=== PATIENT | female | born 1975 | race Caucasian/White ===

== ENCOUNTER 2016-07-19 03:41 | Inpatient (IN) | payer OTHER ==
[~2016-07-19] VITALS: Ht 167.6 cm; Wt 77.5 kg
[2016-07-19 03:58] VITALS: Ht 167.6 cm; Wt 77.5 kg
[2016-07-19] MEDS ORDERED: ONDANSETRON 4 MG INJ IV STA (04:10)
[2016-07-19] MEDS ORDERED: morphine 4 MG/ML VIAL IV STA (04:10)
[2016-07-19] MEDS ORDERED: SOD CHLORIDE 0.9% 1,000 ML IV STA (04:10)
[2016-07-19 04:24] LABS: URINE BLOOD (Dip) POC Trace-lysed (NEGATIVE)
[2016-07-19 04:51] LABS: ADD SCAN DIFF NO
[2016-07-19 04:53] LABS: BASOPHILS % 0.3 % (0.0-2.0); EOSINOPHILS # 0.1 10^3/ul (0.0-0.5); EOSINOPHILS % 0.4 % (0.0-7.0); HEMATOCRIT 37.1 % (37.0-47.0); HEMOGLOBIN 13.3 g/dl (12.0-16.0); LYMPHOCYTES # 1.5 10^3/ul (0.8-2.9); LYMPHOCYTES % 10.9 % (15.0-51.0); MEAN CORPUSCULAR HEMOGLOBIN 32.9 pg (29.0-33.0); MEAN CORPUSCULAR HGB CONC 35.8 g/dl (32.0-37.0); MEAN CORPUSCULAR VOLUME 91.8 fl (82.0-101.0); MEAN PLATELET VOLUME 10.7 fl (7.4-10.4); MONOCYTE # 0.7 10^3/ul (0.3-0.9); MONOCYTES % 5.4 % (0.0-11.0); NEUTROPHILS % 82.6 % (39.0-77.0); PLATELET COUNT 308 10^3/UL (140-415); RED BLOOD COUNT 4.04 10^6/ul (4.20-5.40); RED CELL DISTRIBUTION WIDTH 11.5 % (11.5-14.5); WHITE BLOOD COUNT 13.3 10^3/ul (4.8-10.8)
[2016-07-19 04:59] LABS: ADD UMIC YES; URINE BILIRUBIN (Dip) NEGATIVE (NEGATIVE); URINE BLOOD (Dip) TRACE (NEGATIVE); URINE COLOR LT. YELLOW (YELLOW); URINE GLUCOSE (Dip) NEGATIVE (NEGATIVE); URINE KETONES (Dip) NEGATIVE (NEGATIVE); URINE LEUKOCYTE ESTERASE (Dip) NEGATIVE (NEGATIVE); URINE NITRITE (Dip) NEGATIVE (NEGATIVE); URINE TOTAL PROTEIN (Dip) NEGATIVE (NEGATIVE); URINE UROBILINOGEN (Dip) 0.2 E.U./dL (0.1-1.0)
[2016-07-19 05:09] LABS: BACTERIA,URINE OCCASIONAL; SQUAMOUS EPITHELIAL CELL,UR FEW; URINE RBCS 0-2 /HPF (0)
[2016-07-19 05:14] LABS: ALBUMIN 4.8 g/dl (3.3-4.9); ALBUMIN/GLOBULIN RATIO 1.92; BILIRUBIN,INDIRECT 0.7 mg/dl (0-1.1); BILIRUBIN,TOTAL 0.7 mg/dl (0.2-1.3); CALCIUM 8.8 mg/dl (8.4-10.2); CREATININE 0.67 mg/dl (0.44-1.00); POTASSIUM 3.9 mmol/L (3.5-5.1); TOTAL PROTEIN 7.3 g/dl (6.1-8.1)
--- NOTE | 2016-07-19 05:16 | RADRPT ---
PROCEDURE: CT of the abdomen and pelvis without contrast CLINICAL INDICATION: Abdominal pain. TECHNIQUE: Spiral CT images through the abdomen and pelvis without the use of contrast. The admin istered radiation dose is CTDI 12.94 and DLP 737.75. One or more of the following dose reduction te chniques were used: automated exposure control, adjustment of the mA and/or kV according to patient size, or use of iterative reconstruction technique. COMPARISON: None FINDINGS: Lack of oral and intravenous contrast somewhat limits evaluation. Slight dependent atelectasis of the lung bases is seen. No pleural effusion is seen. The gallbladder is unremarkable in appearance . The liver, spleen, and adrenals are unremarkable in appearance. There are a few tiny nonobstructing bilateral renal stones. There is mild prominence of the pancreatic head without gross focal mass. No biliary or pancreatic ductal dilatation is seen. . . Evaluation of the bowel is limited by la ck of oral contrast. There are multiple dilated proximal to mid small bowel loops with feculent con tent at the level of the umbilicus were there is transition point to multiple decompressed small bow el loops. The appendix is not definitely identified. A small amount of free fluid is seen in the p ashley. The uterus, bladder, and adnexal structures are grossly unremarkable. No free air or definit e abscess is seen. No bony abnormality is seen.. IMPRESSION: Moderate to high-grade mid small bowel obstruction with transition point at the level of the umbilic us. No definite free air or abscess. Tiny nonobstructing bilateral renal stones. Mild prominence of the pancreatic head without gross focal mass on this noncontrast study. No ducta l dilatation. Elective follow-up contrast study could be performed if indicated clinically.. RPTAT: [facility]BE Physician Cory Date Time Electronically viewed and signed by Physician Cory on 07/19/2016 05:15 LE/
[2016-07-19] MEDS ORDERED: BISM262O23 PO (05:24)
[2016-07-19] MEDS ORDERED: MULTI PO (05:24)
[2016-07-19] MEDS ORDERED: IRON150C5 PO (05:24)
[2016-07-19] MEDS ORDERED: SIME62.5 PO (05:24)
--- NOTE | 2016-07-19 05:43 | ERA ---
ER Documentation Chief Complaint Date/Time DATE: 07/19/16 TIME: 05:41 Chief Complaint AP radiating to right side x4 hours HPI This is a 40-year-old female with complaints of diffuse abdominal pain that localizes to her right upper and lower quadrant. She has associated nausea vomiting. 2 episodes of vomiting which nonbilious nonbloody. No fevers no chills. Only previous surgical history is abdominal tumor remover as a child. No fevers no chills. No other current complaints. ROS All systems reviewed and are negative except as per history of present illness. 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 Neck: Full range of motion..~ No meningismus. Resp: Clear to auscultation bilaterally Cardio: Regular rate and rhythm, no murmurs Abd: Soft, non tender, non distended. Normal bowel sounds Skin: No petechiae or rashes Back: No midline or flank tenderness Ext: No cyanosis, or edema Neur: Awake and alert Psych: Normal Mood and Affect Result Diagram: 07/19/1643207/19/16432 Results 24 hrs Laboratory Tests Test 07/19/16 04:10 07/19/16 04:26 07/19/16 04:33 Urine Color LT. YELLOW Urine Clarity CLEAR Urine pH 6.5 Urine Specific [place] 1.010 Urine Ketones NEGATIVE Urine Nitrite NEGATIVE Urine Bilirubin NEGATIVE Urine Urobilinogen 0.2 E.U./dL Urine Leukocyte Esterase NEGATIVE Urine Microscopic RBC 0-2/HPF Urine Microscopic WBC 0-2/HPF Urine Squamous Epithelial Cells FEW Urine Bacteria OCCASIONAL Urine Hemoglobin TRACE Urine Glucose NEGATIVE% Urine Total Protein NEGATIVE Bedside Urine pH (LAB) 7.0 Bedside Urine Protein (LAB) Negative Bedside Urine Glucose (UA) Negative Bedside Urine Ketones (LAB) Negative Bedside Urine Blood Trace-lysed Bedside Urine Nitrite (LAB) Negative Bedside Urine Leukocyte Esterase (L Negative White Blood Count 13.310^3/ul Red Blood Count 4.0410^6/ul Hemoglobin 13.3g/dl Hematocrit 37.1% Mean Corpuscular Volume 91.8fl Mean Corpuscular Hemoglobin 32.9pg Mean Corpuscular Hemoglobin Concent 35.8g/dl Red Cell Distribution Width 11.5% Platelet Count 13670^3/UL Mean Platelet Volume 10.7fl Neutrophils % 82.6% Lymphocytes % 10.9% Monocytes % 5.4% Eosinophils % 0.4% Basophils % 0.3% Nucleated Red Blood Cells % 0.0/100WBC Neutrophils # 11.010^3/ul Lymphocytes # 1.510^3/ul Monocytes # 0.710^3/ul Eosinophils # 0.110^3/ul Basophils # 0.010^3/ul Nucleated Red Blood Cells # 0.010^3/ul Sodium Level 142mmol/L Potassium Level 3.9mmol/L Chloride Level 108mmol/L Carbon Dioxide Level 26mmol/L Anion Gap 12 Blood Urea Nitrogen 13mg/dl Creatinine 0.67mg/dl Glucose Level 102mg/dl Calcium Level 8.8mg/dl Total Bilirubin 0.7mg/dl Direct Bilirubin 0.00mg/dl Indirect Bilirubin 0.7mg/dl Aspartate Amino Transf (AST/SGOT) 40IU/L Alanine Aminotransferase (ALT/SGPT) 54IU/L Alkaline Phosphatase 81IU/L Total Protein 7.3g/dl Albumin 4.8g/dl Globulin 2.50g/dl Albumin/Globulin Ratio 1.92 Lipase 24U/L Current Medications Medications (Trade) Dose Ordered Sig/Eren Route PRN Reason Start Time Stop Time Status Last Admin Dose Admin Sodium Chloride (NS) 1,000 ml @ 1,000 mls/hr Q1H STAT IV 07/19/16 04:10 07/19/16 05:09 DC 07/19/16 04:32 Morphine Sulfate (morphine) 4 mg ONCE STAT IV 07/19/16 04:10 07/19/16 04:12 DC 07/19/16 04:33 Ondansetron HCl (Zofran Inj) 4 mg ONCE STAT IV 07/19/16 04:10 07/19/16 04:12 DC 07/19/16 04:32 Procedures/MDM Medical decision-making: Patient has what looks to be small bowel obstruction on CT scan. At this point patient will be admitted to hospitalist. Surgeon on- call notified. (Dr. Lopes): Departure Diagnosis: Primary Impression: Abdominal pain Qualified Code: R10.84 - Generalized abdominal pain Additional Impression: Small bowel obstruction Condition: Stable VINICIUS GIL Jul 19, 2016 05:43
[2016-07-19] MEDS ORDERED: HYDROmorphONE 1 MG/ML SYG IV STA (05:59)
--- NOTE | 2016-07-19 08:53 | HP ---
Date/Time of Note Date/Time of Note DATE: 07/19/16 TIME: 08:45 Assessment/Plan VTE Prophylaxis VTE Prophylaxis Intervention: SCD's Assessment/Plan Assessment/Plan IMPRESSION 1. High Grade SBO 2. 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 Pain is right sided and vomiting is NBNB. No chest pain, SOB, fever, chills. last BM yesterday. In ER, CT abd/pelvis showed Moderate to high-grade mid small bowel obstruction with transition point at the level of the umbilicus. Labs show WBC of 13.3 otherwise CBC and CMP are WNL. . PMH/Family/Social Social History Smoking Status: Unknown if ever smoked Exam/Review of Systems Vital Signs Vitals Vital Signs Date Time Temp Pulse Resp B/P Pulse Ox O2 Delivery O2 Flow Rate FiO2 07/19/16 07:49 77 18 106/74 100 Room Air 07/19/16 03:58 98.5 Exam Constitutional: alert, oriented, well developed Head: atraumatic, normocephalic Eyes: EOMI, PERRL Respiratory: clear to auscultation, normal air movement Cardiovascular: nl pulses, regular rate and rhythm Gastrointestinal: tender Extremities: normal pulses Labs Result Diagram: 07/19/16 0433 07/19/16 0433 Medications Medications Current Medications Dextrose/Sodium Chloride (D5-1/2ns) 1,000 ml @ 120 mls/hr Q8H20M IV ; Start 07/19/16 at 08:38; Status UNV Ondansetron HCl (Zofran Inj) 4 mg Q6H PRN IV NAUSEA AND/OR VOMITING; Start 07/19 at 09:00; Status UNV Morphine Sulfate (morphine) 4 mg Q4H PRN IV pain; Start 07/19/16 at 09:00; Status UNV VINICIUS GRIMM MD Jul 19, 2016 08:53
[2016-07-19] MEDS ORDERED: ALBUTEROL/IPRATROPIUM (NEB) 3 ML AMP HHN PRN (09:00)
[2016-07-19] MEDS ORDERED: NACL 0.9% 3 ML SYG IV SCH (09:00)
[2016-07-19] MEDS: DEXTROSE 5%-0.45% NACL 1,000 ML IV SCH ×3 (09:14→21:42)
[2016-07-19] MEDS: ONDANSETRON 4 MG INJ IV PRN ×2 (09:33→19:25)
[2016-07-19] MEDS: morphine 2 MG INJ IV PRN ×2 (09:34→19:25)
[2016-07-19 20:35] VITALS: PULSE 82; TEMP 98.7
--- NOTE | 2016-07-19 20:43 | CONS ---
[facility] INITIAL INPATIENT CONSULTATION NOTE DATE OF CONSULTATION: 07/19/2016 PLACE OF SERVICE: [facility] Emergency Department. IMPRESSION AND PLAN: A very pleasant 40-year-old lady with comorbidity of body mass index 27.6 and a remote history of abdominal surgery in the form of removal of Wilms tumor when she was a small baby presenting with abdominal pain , nausea and vomiting which could be due to partial small-bowel obstruction but could certainly also be a routine gastroenteritis. My examination and her history and impression of the whole clinical picture are not consistent with a severe bowel obstruction. I do not think that the patient currently needs an NG tube but should just probably stay n.p.o. until she starts passing flatus. Certainly there is no indication for acute surgical intervention, and I am hopeful with nonoperative management that the patient will have return of her bowel function and possibly be discharged home in the next 24 to 48 hours. I explained all this in detail with the patient (no family present during my discussions with the patient) and answered all her questions to the best of my ability. I believe that the patient understood and agreed with the plan. With above assessment, I have recommended the followin. Continue in-house care with n.p.o. status. 2. Intravenous fluids. 3. Symptom control. 4. Once the patient starts passing flatus, to start a clear liquid diet. Thank you again for allowing us to participate in the care of this very pleasant lady and I am certain her wonderful family. If there are any questions , please feel free to contact me at [phone]. UPDATED CLINICAL SUMMARY: The patient is a very pleasant 40-year-old lady with comorbidities including BMI 27.6 as well as an operation to remove a Wilms tumor from her kidney as a child presenting with abdominal pain and nausea, vomiting. COMORBIDITIES: 1. BMI 27.6. 2. 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 3. Small nonobstructing bilateral renal stones. 4. Mild prominence of the pancreatic head without gross focal mass on this noncontrast study done 07/19/2016. DATE OF ADMISSION: 07/19/2016 HISTORY OF PRESENT ILLNESS: The patient is a very pleasant 40-year-old lady with above-mentioned comorbidities who we were kindly asked to consult regarding management of possible small-bowel obstruction in the setting of prior operation. The patient herself reports significant improvement in her symptoms and currently has no nausea or vomiting. She had a bowel movement yesterday and passed gas at that time as well. No other major complaints. No other prior history of similar symptoms in the past and has been fairly healthy otherwise. ALLERGIES: NO KNOWN DRUG ALLERGIES. HOME MEDICATIONS: (please see EHR) Include: 1. Pepto-Bismol. 2. Ferrex. 3. ____. 4. Gas-X. SOCIAL HISTORY: The patient does not report any major smoking, drinking or intravenous drug use. FAMILY HISTORY: There is no mention of major medical, surgical or oncologic problems in the family. REVIEW OF SYSTEMS: Other than the above mentioned, there are no other pertinent positives or pertinent negatives in a complete 14-point review of systems. PHYSICAL EXAMINATION: GENERAL: The patient appears to be a very pleasant lady of unclear descent (possibly in origin but mixed), lying in bed comfortably and in no acute distress. BMI is 27.6. VITAL SIGNS: Temperature 98.5, blood pressure 106/74, pulse 77, respiratory rate 18, pulse oximetry 100% on room air. HEENT: Normocephalic and atraumatic. Extraocular muscles and hearing are grossly intact bilaterally and symmetrically. Sclerae are nonicteric. Oral cavity is clear; oral mucosa appeared to be pink and moist. Dentition: fair. NECK: Supple. There is no lymphadenopathy or JVD. There is no submental, submandibular or supraclavicular lymphadenopathy. CHEST: Rises symmetrically with each breath; patient is breathing comfortably. There are no audible wheezes, rales or rhonchi on the gross exam. HEART: Pulse is regular and palpable on the right wrist. Capillary refill was normal. Carotid pulses are palpable bilaterally and symmetrically in the neck. EXTREMITIES: Lower extremities contain no pitting edema around the ankles bilaterally and symmetrically. ABDOMEN: Soft, nondistended and nontender. There is a well-healed midline incision without any evidence of erythema, edema, discharge or hernia. There is no organomegaly, caput medusae, engorged subcutaneous veins or ascites. There are no peritoneal signs or guarding. SKIN: Appears to be pink and feels warm to touch. NEUROLOGIC: Awake, alert, and follows commands appropriately. LABORATORY VALUES: White blood cell count 13.3, platelets 380. Electrolytes are normal, creatinine 0.67, CO2 26, bilirubin 0.7, AST 40, ALT 54, alkaline phosphatase 81, albumin 4.8, lipase 24. Urinalysis was negative for leukocyte esterase or nitrite. IMAGING: The patient had an abdominal and pelvic CT on 07/19/2016, pertinent findings of which I reviewed above. Note that I personally also reviewed all the available and pertinent images, and I agree in general with their overall reported findings. Dictated By: JAXON EWING/EMELINA Conf#: [id number] DID#: [id number] MTDD
[2016-07-20 05:31] LABS: ADD SCAN DIFF NO
[2016-07-20] MEDS: DEXTROSE 5%-0.45% NACL 1,000 ML IV SCH ×4 (05:34→22:12)
[2016-07-20] MEDS: morphine 2 MG INJ IV PRN ×4 (05:34→21:50)
[2016-07-20 06:02] LABS: BASOPHILS % 0.5 % (0.0-2.0); EOSINOPHILS # 0.1 10^3/ul (0.0-0.5); EOSINOPHILS % 1.4 % (0.0-7.0); HEMATOCRIT 36.4 % (37.0-47.0); HEMOGLOBIN 12.5 g/dl (12.0-16.0); LYMPHOCYTES # 1.9 10^3/ul (0.8-2.9); LYMPHOCYTES % 33.1 % (15.0-51.0); MEAN CORPUSCULAR HEMOGLOBIN 32.3 pg (29.0-33.0); MEAN CORPUSCULAR HGB CONC 34.3 g/dl (32.0-37.0); MEAN CORPUSCULAR VOLUME 94.1 fl (82.0-101.0); MEAN PLATELET VOLUME 10.5 fl (7.4-10.4); MONOCYTE # 0.5 10^3/ul (0.3-0.9); NEUTROPHIL # 3.2 10^3/ul (1.6-7.5); NEUTROPHILS % 55.8 % (39.0-77.0); PLATELET COUNT 285 10^3/UL (140-415); RED BLOOD COUNT 3.87 10^6/ul (4.20-5.40); RED CELL DISTRIBUTION WIDTH 11.8 % (11.5-14.5); WHITE BLOOD COUNT 5.7 10^3/ul (4.8-10.8)
[2016-07-20 06:28] LABS: ALBUMIN 4.3 g/dl (3.3-4.9); ALBUMIN/GLOBULIN RATIO 1.86; BILIRUBIN,INDIRECT 0.8 mg/dl (0-1.1); BILIRUBIN,TOTAL 0.8 mg/dl (0.2-1.3); CALCIUM 8.5 mg/dl (8.4-10.2); CREATININE 0.68 mg/dl (0.44-1.00); PHOSPHORUS 3.4 mg/dl (2.5-4.9); POTASSIUM 3.7 mmol/L (3.5-5.1); TOTAL PROTEIN 6.6 g/dl (6.1-8.1)
[2016-07-20 08:33] VITALS: BP 104/53; RESP 18
--- NOTE | 2016-07-20 14:24 | PN ---
Date/Time of Note Date/Time of Note DATE: 07/20/16 TIME: 14:17 Assessment/Plan VTE Prophylaxis VTE Prophylaxis Intervention: SCD's Lines/Catheters IV Catheter Type (from Nrs): Peripheral IV Urinary Cath still in place: No Assessment/Plan Chief Complaint/Hosp Course 1. High Grade SBO Surgical consult appreciated, plan is to keep n.p.o. at this time NG tube unable to be placed Monitor for flatus or bowel movements, once patient has flatus will start a clear liquid diet 2. Leukocytosis likely [id number] Prophylaxis: SCDs Problems: Subjective 24 Hr Interval Summary Gastrointestinal: pain Exam/Review of Systems Vital Signs Vitals Vital Signs Date Time Temp Pulse Resp B/P Pulse Ox O2 Delivery O2 Flow Rate FiO2 07/20/16 08:33 98.4 69 18 104/53 95 07/19/16 20:35 Room Air Intake and Output 07/19/16 07/19/16 07/20/16 15:00 23:00 07:00 Intake Total 1000 ml 1000 ml Balance 1000 ml 1000 ml Exam Constitutional: alert, oriented Respiratory: clear to auscultation Cardiovascular: regular rate and rhythm Gastrointestinal: soft, tender, No distended Musculoskeletal: nl extremities to inspection Results Result Diagram: 07/20/16 0517 07/20/16 0517 Results 24 hrs Laboratory Tests Test 07/20/16 05:17 White Blood Count 5.7 # Red Blood Count 3.87 L Hemoglobin 12.5 Hematocrit 36.4 L Mean Corpuscular Volume 94.1 Mean Corpuscular Hemoglobin 32.3 Mean Corpuscular Hemoglobin Concent 34.3 Red Cell Distribution Width 11.8 Platelet Count 285 Mean Platelet Volume 10.5 H Neutrophils % 55.8 Lymphocytes % 33.1 Monocytes % 9.0 Eosinophils % 1.4 Basophils % 0.5 Nucleated Red Blood Cells % 0.0 Neutrophils # 3.2 Lymphocytes # 1.9 Monocytes # 0.5 Eosinophils # 0.1 Basophils # 0.0 Nucleated Red Blood Cells # 0.0 Sodium Level 142 Potassium Level 3.7 Chloride Level 109 Carbon Dioxide Level 27 Anion Gap 10 Blood Urea Nitrogen 6 L Creatinine 0.68 Glucose Level 102 Calcium Level 8.5 Phosphorus Level 3.4 Magnesium Level 2.0 Total Bilirubin 0.8 Direct Bilirubin 0.00 Indirect Bilirubin 0.8 Aspartate Amino Transf (AST/SGOT) 34 Alanine Aminotransferase (ALT/SGPT) 47 Alkaline Phosphatase 68 Total Protein 6.6 Albumin 4.3 Globulin 2.30 Albumin/Globulin Ratio 1.86 Medications Medications Current Medications Dextrose/Sodium Chloride (D5-1/2ns) 1,000 ml @ 120 mls/hr Q8H20M IV Last administered on 07/20/16 14:09; Admin Dose 120 MLS/HR; Start 07/19/16 at 08:38 Ondansetron HCl (Zofran Inj) 4 mg Q6H PRN IV NAUSEA AND/OR VOMITING Last administered on 07/19/16 19:25; Admin Dose 4 MG; Start 07/19/16 at 09:00 Morphine Sulfate (morphine) 4 mg Q4H PRN IV pain Last administered on 07/20/16 10:44; Admin Dose 4 MG; Start 07/19/16 at 09:00 HENRIQUE URIAS Jul 20, 2016 14:23
[2016-07-20 19:39] VITALS: BP 115/68; RESP 18
[2016-07-20 19:44] VITALS: BP 114/66; RESP 18
--- NOTE | 2016-07-20 20:41 | PN ---
Date/Time of Note Date/Time of Note DATE: 07/20/16 TIME: 20:37 Assessment/Plan Lines/Catheters IV Catheter Type (from Nrs): Peripheral IV Fox in Place (from Nrs): No Assessment/Plan Assessment/Plan [facility] Progress Note Date of Service: 07/20/16 Today's Impression & Plan: Overall stable with partial SBO vs. viral gastroenteritis. No indication for acute surgical intervention. With above assessment, I've recommended the following for today: 1. Cont current management 2. Cont NPO Thank you again for your great care of this very pleasant patient and wonderful family. If there are any questions, please feel free to call me at [phone]. TOTAL VISIT TIME: 20 minutes of which more than half was spent in [id number]-rh-[id number] discussion with the patient, possibly including family, as well as coordination of care between multiple physicians and providers. Disclaimer: Inadvertent spelling or grammatical errors are likely due to EHR/ dictation software use and do not reflect on the overall quality of patient care. 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 COMORBIDITIES: 1. BMI 27.6. 2. 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 3. Small nonobstructing bilateral renal stones. 4. Mild prominence of the pancreatic head without gross focal mass on this noncontrast study done 07/19/2016. Subjective: No major events or complaints; still with mild abd pain and under control with medications; no n/v/d; no sob or cp; - flatus; - BM; + activity Objective: Vitals: See below Exam: GENERAL: On exam, the patient was laying in bed and appeared to be comfortable and in no acute distress. ABDOMEN: Soft, mildly tender to palpation in the mid lower abd and nondistended. There are no peritoneal signs or guarding. SKIN: Skin appears to be pink and feels warm to touch. NEUROLOGIC: Patient is awake, alert, and follows commands appropriately. Exam/Review of Systems Vital Signs Vitals Vital Signs Date Time Temp Pulse Resp B/P Pulse Ox O2 Delivery O2 Flow Rate FiO2 07/20/16 19:44 98.2 91 18 114/66 98 07/19/16 20:35 Room Air Intake and Output 07/19/16 07/19/16 07/20/16 15:00 23:00 07:00 Intake Total 1000 ml 1000 ml Balance 1000 ml 1000 ml Results Result Diagram: 07/20/16 0517 07/20/16 0517 JAXON LOWERY M.D. Jul 20, 2016 20:41
[2016-07-21 05:32] LABS: ADD SCAN DIFF NO
[2016-07-21 05:42] LABS: BASOPHILS % 0.3 % (0.0-2.0); EOSINOPHILS # 0.1 10^3/ul (0.0-0.5); EOSINOPHILS % 1.2 % (0.0-7.0); HEMATOCRIT 33.5 % (37.0-47.0); HEMOGLOBIN 11.9 g/dl (12.0-16.0); LYMPHOCYTES # 1.5 10^3/ul (0.8-2.9); LYMPHOCYTES % 25.8 % (15.0-51.0); MEAN CORPUSCULAR HEMOGLOBIN 32.9 pg (29.0-33.0); MEAN CORPUSCULAR HGB CONC 35.5 g/dl (32.0-37.0); MEAN CORPUSCULAR VOLUME 92.5 fl (82.0-101.0); MEAN PLATELET VOLUME 10.2 fl (7.4-10.4); MONOCYTE # 0.5 10^3/ul (0.3-0.9); MONOCYTES % 8.7 % (0.0-11.0); NEUTROPHIL # 3.7 10^3/ul (1.6-7.5); NEUTROPHILS % 63.8 % (39.0-77.0); PLATELET COUNT 276 10^3/UL (140-415); RED BLOOD COUNT 3.62 10^6/ul (4.20-5.40); RED CELL DISTRIBUTION WIDTH 11.4 % (11.5-14.5); WHITE BLOOD COUNT 5.9 10^3/ul (4.8-10.8)
[2016-07-21 05:53] LABS: CALCIUM 8.7 mg/dl (8.4-10.2); CREATININE 0.62 mg/dl (0.44-1.00); POTASSIUM 3.9 mmol/L (3.5-5.1)
[2016-07-21] MEDS: morphine 2 MG INJ IV PRN ×3 (06:26→20:50)
[2016-07-21] MEDS: DEXTROSE 5%-0.45% NACL 1,000 ML IV SCH ×2 (06:34→15:55)
[2016-07-21 08:14] VITALS: BP 99/58; RESP 20
--- NOTE | 2016-07-21 15:06 | PN ---
Date/Time of Note Date/Time of Note DATE: 07/21/16 TIME: 15:04 Assessment/Plan Lines/Catheters IV Catheter Type (from [facility]): Peripheral IV Fox in Place (from [facility]): No Assessment/Plan Assessment/Plan [facility] Progress Note Date of Service: 07/21/16 Today's Impression & Plan: Overall stable with partial SBO vs. viral gastroenteritis that seems to be resolving. No indication for acute surgical intervention. With above assessment, I've recommended the following for today: 1. Cont current management 2. Advance diet to regular 3. If tolerating regular diet without symptoms, may consider d/c home (? 24-48 hrs from now) Thank you again for your great care of this very pleasant patient and wonderful family. If there are any questions, please feel free to call me at [phone]. TOTAL VISIT TIME: 20 minutes of which more than half was spent in [id number] discussion with the patient, possibly including family, as well as coordination of care between multiple physicians and providers. Disclaimer: Inadvertent spelling or grammatical errors are likely due to EHR/ dictation software use and do not reflect on the overall quality of patient care. 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 COMORBIDITIES: 1. BMI 27.6. 2. 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 3. Small nonobstructing bilateral renal stones. 4. Mild prominence of the pancreatic head without gross focal mass on this noncontrast study done 07/19/2016. Subjective: No major events or complaints; no further abd pain and under control with medications; no n/v/d; no sob or cp; ++ flatus; - BM; + activity Objective: Vitals: See below Exam: GENERAL: On exam, the patient was laying in bed and appeared to be comfortable and in no acute distress. ABDOMEN: Soft, non-tender and nondistended. There are no peritoneal signs or guarding. SKIN: Skin appears to be pink and feels warm to touch. NEUROLOGIC: Patient is awake, alert, and follows commands appropriately. Exam/Review of Systems Vital Signs Vitals Vital Signs Date Time Temp Pulse Resp B/P Pulse Ox O2 Delivery O2 Flow Rate FiO2 07/21/16 08:14 98.4 77 20 99/58 96 07/19/16 20:35 Room Air Intake and Output 07/20/16 07/20/16 07/21/16 15:00 23:00 07:00 Intake Total 1000 ml 1000 ml 800 ml Output Total 1 ml Balance 1000 ml 1000 ml 799 ml Results Result Diagram: 07/21/16 0515 07/21/16 0515 JAXON LOWERY M.D. Jul 21, 2016 15:06
--- NOTE | 2016-07-21 15:22 | PN ---
Date/Time of Note Date/Time of Note DATE: 07/21/16 TIME: 15:19 Assessment/Plan VTE Prophylaxis VTE Prophylaxis Intervention: SCD's Lines/Catheters IV Catheter Type (from [facility]): Peripheral IV Urinary Cath still in place: No Assessment/Plan Chief Complaint/Hosp Course 1. High Grade SBO Patient now positive for flatus Start clear liquid diet Surgical consult appreciated NG tube unable to be placed 2. Leukocytosis likely [id number]-[id number] Prophylaxis: SCDs Problems: Subjective 24 Hr Interval Summary Gastrointestinal: flatus Exam/Review of Systems Vital Signs Vitals Vital Signs Date Time Temp Pulse Resp B/P Pulse Ox O2 Delivery O2 Flow Rate FiO2 07/21/16 08:14 98.4 77 20 99/58 96 07/19/16 20:35 Room Air Intake and Output 07/20/16 07/20/16 07/21/16 15:00 23:00 07:00 Intake Total 1000 ml 1000 ml 800 ml Output Total 1 ml Balance 1000 ml 1000 ml 799 ml Exam Constitutional: alert, oriented Respiratory: clear to auscultation Cardiovascular: regular rate and rhythm Gastrointestinal: soft, No distended Musculoskeletal: nl extremities to inspection Results Result Diagram: 07/21/16 0515 07/21/16 0515 Results 24 hrs Laboratory Tests Test 07/21/16 05:15 White Blood Count 5.9 Red Blood Count 3.62 L Hemoglobin 11.9 L Hematocrit 33.5 L Mean Corpuscular Volume 92.5 Mean Corpuscular Hemoglobin 32.9 Mean Corpuscular Hemoglobin Concent 35.5 Red Cell Distribution Width 11.4 L Platelet Count 276 Mean Platelet Volume 10.2 Neutrophils % 63.8 Lymphocytes % 25.8 Monocytes % 8.7 Eosinophils % 1.2 Basophils % 0.3 Nucleated Red Blood Cells % 0.0 Neutrophils # 3.7 Lymphocytes # 1.5 Monocytes # 0.5 Eosinophils # 0.1 Basophils # 0.0 Nucleated Red Blood Cells # 0.0 Sodium Level 141 Potassium Level 3.9 Chloride Level 109 Carbon Dioxide Level 26 Anion Gap 10 Blood Urea Nitrogen 5 L Creatinine 0.62 Glucose Level 100 Calcium Level 8.7 Medications Medications Current Medications Dextrose/Sodium Chloride (D5-1/2ns) 1,000 ml @ 120 mls/hr Q8H20M IV Last administered on 07/21/16t 06:34; Admin Dose 120 MLS/HR; Start 07/19/16 at 08:38 Ondansetron HCl (Zofran Inj) 4 mg Q6H PRN IV NAUSEA AND/OR VOMITING Last administered on 07/19/16 19:25; Admin Dose 4 MG; Start 07/19/16 at 09:00 Morphine Sulfate (morphine) 4 mg Q4H PRN IV pain Last administered on 07/21/16 12:21; Admin Dose 4 MG; Start 07/19/16 at 09:00 HENRIQUE URIAS Jul 21, 2016 15:22
[2016-07-21 19:40] VITALS: BP 106/62; RESP 18
[2016-07-22] MEDS: DEXTROSE 5%-0.45% NACL 1,000 ML IV SCH ×2 (01:17→09:54)
[2016-07-22] MEDS: morphine 2 MG INJ IV PRN (01:17)
[2016-07-22] MEDS ORDERED: morphine 4 MG/ML VIAL IV PRN (01:38)
[2016-07-22 07:31] VITALS: BP 110/67; RESP 20
[2016-07-22] MEDS ORDERED: BISACODYL (EC) 5 MG TAB PO ONE (14:00)
[2016-07-22] MEDS ORDERED: DOCUSATE SODIUM 100 MG CAP PO ONE (14:00)
[2016-07-22] MEDS ORDERED: SENNA TAB PO ONE (14:00)
[2016-07-22] MEDS: ONDANSETRON 4 MG INJ IV PRN (15:52)
--- NOTE | 2016-07-22 17:58 | PDOCDIS ---
Discharge Instructions CONDITION Patient Condition: Good HOME CARE INSTRUCTIONS: Diet Instructions: Regular ACTIVITY: Activity Restrictions: No Restrictions FOLLOW UP/APPOINTMENTS Appointments FOLLOW UP WITH YOUR PRIMARY CARE PHYSICIAN IN 1-2 WEEKS HENRIQUE URIAS Jul 22, 2016 17:58
[2016-07-22 19:24] VITALS: BP 113/68; RESP 18
--- NOTE | 2016-07-22 21:04 | PN ---
Date/Time of Note Date/Time of Note DATE: 07/22/16 TIME: 21:03 Assessment/Plan Lines/Catheters IV Catheter Type (from Nrs): Peripheral IV Fox in Place (from Nrs): No Assessment/Plan Assessment/Plan [facility] Progress Note Date of Service: 07/22/16 Today's Impression & Plan: Overall stable with partial SBO vs. viral gastroenteritis that seems to be resolving. No indication for acute surgical intervention. With above assessment, I've recommended the following for today: 1. Cont current management 2. Advance diet to regular 3. If tolerating regular diet without symptoms, may consider d/c home today Thank you again for your great care of this very pleasant patient and wonderful family. If there are any questions, please feel free to call me at [phone]. TOTAL VISIT TIME: 20 minutes of which more than half was spent in [id number] discussion with the patient, possibly including family, as well as coordination of care between multiple physicians and providers. Disclaimer: Inadvertent spelling or grammatical errors are likely due to EHR/ dictation software use and do not reflect on the overall quality of patient care. 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 COMORBIDITIES: 1. BMI 27.6. 2. 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 3. Small nonobstructing bilateral renal stones. 4. Mild prominence of the pancreatic head without gross focal mass on this noncontrast study done 07/19/2016. Subjective: No major events or complaints; no abd pain and under control with medications; no n/v/d; no sob or cp; ++ flatus; + BM; + activity Objective: Vitals: See below Exam: GENERAL: On exam, the patient was laying in bed and appeared to be comfortable and in no acute distress. ABDOMEN: Soft, non-tender and nondistended. There are no peritoneal signs or guarding. SKIN: Skin appears to be pink and feels warm to touch. NEUROLOGIC: Patient is awake, alert, and follows commands appropriately. Exam/Review of Systems Vital Signs Vitals Vital Signs Date Time Temp Pulse Resp B/P Pulse Ox O2 Delivery O2 Flow Rate FiO2 07/22/16 19:24 98.0 76 18 113/68 98 07/19/16 20:35 Room Air Intake and Output 07/21/16 07/21/16 07/22/16 15:00 23:00 07:00 Intake Total 2940 ml 755 ml Balance 2940 ml 755 ml Results Result Diagram: 07/21/16 0515 07/21/16 0515 JAXON LOWERY M.D. Jul 22, 2016 21:04
--- NOTE | 2016-07-23 15:54 | DS ---
DATE OF ADMISSION: 07/19/2016 DATE OF DISCHARGE: 07/22/2016 DISCHARGE DIAGNOSES: 1. High-grade small bowel obstruction, now resolved. 2. Leukocytosis, stress related, resolved. HOSPITAL COURSE: The patient is a 41-year-old female with a history of Wilms tumor status post surg hollis when she was a child. The patient presented with abdominal pain, nausea, and vomiting. She was found to have high grade small bowel obstruction. NG tube was unable to be placed, and the patient was monitored and kept n.p.o. The patient was seen by surgery, and conservative management was rec ommended. The patient did begin to pass gas. She was started on a clear liquid diet, and ultimatel y, she did have a bowel movement. The patient was felt to be stable for discharge. On the day of d ischarge, the patient's vitals, labs, and physical exam were stable. She had no acute complaints. Questions were answered. CONDITION ON DISCHARGE: Stable. DISPOSITION: To home. MEDICATIONS: No new medications prescribed. The patient to continue her usual home medications. FOLLOWUP: The patient is to follow up with PCP in 1 to 2 weeks. Greater than 30 minutes was spent coordinating discharge of the patient. Dictated By: HENRIQUE TRAN/EMELINA Conf#: [id number] DID#: [id number]
== END 2016-07-22 20:30 | disposition home or self-care (01) | DRG 390 ==
LOC: E/R 03:41 → MS2 09:00
PROVIDERS: ADMIT Internal Medicine; ATTEND Internal Medicine
DX: K56.60 Unspecified intestinal obstruction (principal); D72.828 Other elevated white blood cell count; Z98.890 Other specified postprocedural states
CPT/HCPCS: 36415; 74176; 80048; 80053; 81001; 81003; 83690; 83735; 84100; 85025; 87086; 96361; 96374; 96375; 96376; J1170; J2270; J2405; J7030; J7042